=== PATIENT | male | born 1965 | race Caucasian/White ===

== ENCOUNTER → 2016-08-09 | Day surgery (SDC) | payer OTHER ==
[~2016-08-09] MED LIST: AMOXICILLIN; ASPIRIN EC81 M1 PO; AUGMENTIN; PRILOSEC PO; PURALOR CI TAB1 EACH; VIRT-VITE TABL1 EACH PO; VITAMIN B12-FO1 EACH PO
--- NOTE | ~2016-08-09 | OR ---
Unit #: [id number] #: [id number] Patient: TESSA STEPHENS [id number] [address] [place], [place] [address] [id number] O MR#: [id number] NAME: TESSA STEPHENS ROOM: Date of Procedure: 08/09/2016 Admission Date: 08/09/2016 Surgeon: Oscar Salmon M.D. : 1965 Attending Physician: Oscar Salmon M.D. Primary Care Physician: Generic Doctor Not In System OPERATIVE REPORT PRIMARY CARE PHYSICIAN Dr. Claudio Quispe. PREOPERATIVE DIAGNOSES Postprandial dyspepsia, retrosternal ascending heartburn, and gastroesophageal reflux with breakthrough symptoms. PROCEDURES PERFORMED Upper gastrointestinal endoscopy and biopsy. POSTOPERATIVE DIAGNOSES 1. The patient had mild prepyloric antral erosive gastritis. 2. There was grade 1 distal erosive esophagitis. 3. Rest of the examination up to third part of the duodenum was normal. Biopsies were obtained from the antrum for CLOtest. RECOMMENDATIONS 1. Follow up the results of the CLOtest. 2. The patient is being started on pantoprazole 40 mg p.o. daily. 3. He will be followed up in the office in 3 to 4 months' time. SEDATION USED MAC. DESCRIPTION OF PROCEDURE Following detailed explanation of potential risks and complications of an upper endoscopy, namely perforation, bleeding, and complications related to sedation, the patient was brought to GI lab and laid in the left lateral decubitus position. Lubricated tip of the Olympus video upper endoscope was passed through the bite block into the proximal esophagus under direct vision. The entire esophageal mucosa was examined. The patient was noted to have grade 1 distal erosive esophagitis. The scope was then advanced into the gastric cavity and the latter was insufflated. Mucosa of the fundus, body, and antrum was examined. Mild prepyloric antral erosive gastritis was noted in the form of erythematous streaks and erosions. Pylorus was intubated with visualization of the normal duodenal bulb and second and third part of the duodenum. Upon withdrawal and retroflexion, the incisura, cardia, and greater curve were examined and a biopsy was obtained from the antrum for CLOtest. The scope was then withdrawn into the distal esophagus. The entire esophageal mucosa was examined all the way up to pharynx and no additional findings were noted. Unit #: [id number] #: [id number] Patient: TESSA STEPHENS The patient tolerated the procedure without any postprocedure complications. Dictated by... Jacek Arnold/marcella TD: 08/09/2016 14:59 JOB #: [id number] OPERATIVE REPORT Page 1 of 1 X Oscar Salmon MD PROCEDURE OPERATIVE NOTE
== END | disposition home or self-care (01) ==
LOC: COPS 11:35
DX: K29.70 Gastritis, unspecified, without bleeding (principal); K22.10 Ulcer of esophagus without bleeding; K21.9 Gastro-esophageal reflux disease without esophagitis; Z79.2 Long term (current) use of antibiotics; Z79.82 Long term (current) use of aspirin; Z79.899 Other long term (current) drug therapy; Z90.49 Acquired absence of other specified parts of digestive tract
CPT/HCPCS: 87077